=== PATIENT | female | born 2000 | race Caucasian/White ===

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

== ENCOUNTER → 2022-07-03 | Outpatient (CLI) | payer OTHER ==
--- NOTE | 2022-07-03 23:06 | US ---
EXAMINATION TYPE: Transabdominal DATE OF EXAM: 07/03/2022 4:50 PM COMPARISON: NONE CLINICAL HISTORY: Z36.89 ENCOUNTER FOR OTHER SPECIFIED SCR. Viability. . EXAM PERFORMED: Transabdominal (TA) EXAM MEASUREMENTS: GESTATIONAL AGE / DATING Physician Established: Not yet established Dates by LMP: (8 weeks/0 days) EDC: 02/12/2023 Dates by First Scan: This is first scan Dates by Current Scan for: (11 weeks/2 days) EDC: 01/20/2023 MATERNAL ANATOMY Uterus: 13.1 x 8.6 x 7.7 cm. Right Ovary: 3.7 x 2.1 x 3.1 cm. Left Ovary: 2.4 x 1.6 x 1.6 cm. Post CDS / Adnexa: Appear wnl Presence of free fluid: None seen Presence of corpus luteal cyst: Possible within right ovary, anechoic area seen within right ovary: 1 .7 x 1.8 x 2.1 cm. Presence of subchorionic bleed: Not seen GESTATION / SURVEY CRL: 4.49 cm (11 weeks/2 days) Yolk Sac (normal less than 6mm): Not seen. Heart Rate: 166 bpm Rhythm: Normal IUP: Viable IUP Nuchal Translucency 10-14wks (normal less than 3mm): 1 mm. Age Appropriate Anatomy Cord Insertion: Limited visibility Limbs: Visualized Calvarium: Visualized Date of LMP: 05/08/2022 Beta HcG (if available): Not available Single live intrauterine gestation is seen as gestational sac and pole are present. Yolk sac no t clearly identified. No free fluid in pelvic cul-de-sac. Both ovaries are seen. There is 2.1 cm thin-walled peripheral cystic lesion right ovary favoring debbie us luteal cyst. IMPRESSION: Single live intrauterine gestation is confirmed. Mean crown-rump length is 4.5 cm corresp onding to 11 week 2 day old fetus.
== END | disposition home or self-care (01) ==
LOC: RADUSWWP 16:24
PROVIDERS: ATTEND Obstetrics & Gynecology
DX: Z36.89 Encounter for other specified antenatal screening (principal); Z3A.11 11 weeks gestation of pregnancy
CPT/HCPCS: 76801; 76813

== ENCOUNTER 2022-11-08 14:56 | Outpatient (CLI) | payer OTHER ==
[2022-11-08] MEDS ORDERED: LACTATED RINGERS 1,000 ML IV ONE (16:00)
[2022-11-08 16:15] LABS: Appearance,Urine Clear (Clear); Bilirubin,Urine Negative (Negative); Blood,Urine Negative (Negative); Color,Urine Light Yellow; Glucose,Urine (UA) Negative (Negative); Ketones,Urine 1+ (Negative); Leukocyte Esterase,Urine Negative (Negative); Nitrite,Urine Negative (Negative); Protein,Urine Negative (Negative); Specific Gravity,Urine 1.007 (1.001-1.035); Urobilinogen,Urine <2.0 mg/dL (<2.0)
[2022-11-08 17:53] VITALS: BP 128/79; PULSE 89; RESP 18; TEMP 97.8
--- NOTE | 2022-11-23 10:22 | P.MSEPDOC ---
Presenting Problems - Arrival Data Date of Arrival on Unit: 11/08/22 Time of Arrival on Unit: 15:00 Mode of Transport: Ambulatory - Complaint OB-Reason for Admission/Chief Complaint: Possible Onset of Labor Comment: pt complaints of contractions that started at noon. Medical History - Information : 2 Para: 1 Term: 1 : 0 Abortions: Spontaneous or Elective: 0 Number of Living Children: 1 - Gestational Age Gestational Age by KEIRA (wks/days): 29 Weeks and 4 Days Review of Systems - Review of Systems Constitutional: No problems Breast: No problems ENT: No problems Cardiovascular: No problems Respiratory: No problems Gastrointestinal: No problems Genitourinary: No problems Musculoskeletal: No problems Neurological: No problems Skin: No problems Vital Signs - Temperature Temperature: 97.8 F Temperature Source: Oral - Pulse Pulse Oximetery Pulse Rate: 89 Pulse Assessment Method: Pulse Oximetry - Respirations Respiratory Rate: 18 Oxygen Delivery Method: Room Air O2 Sat by Pulse Oximetry: 97 - Blood Pressure Right Arm Blood Pressure: 128/79 Blood Pressure Mean: 95 Blood Pressure Source: Automatic Cuff Medical Screen Scoring - Cervical Exam Dilation (cm): 0 Effacement (%): 50 Station: -2 Membranes: Intact - Uterine Contractions Frequency From (mins): 5 Frequency To (mins): 6 Duration From (seconds): 40 Duration To (seconds): 90 Intensity: Mild Resting: Soft to palpation - Assessment - Baby A Baseline FHR: 130 Heart Rate - NICHD Category: Category I (Normal) NST: Reactive Physician Notification - Physician Notified Physician Notified Date: 11/08/22 Physician Notified Time: 15:51 Physician: Chitra Perdomo New Order Received: Yes Maternal Triage Index - Maternal Triage Index Presenting for scheduled procedure w/no complaint: No - Stat/Priority 1 Stat Priority 1: No - Urgent/Priority 2 Urgent Priority 2: Yes Provider Notified: Chitra Perdomo Provider Notified Time: 15:51 Criteria Met for Priority 2: pt complaining of contractions that started at noon. every 15 mins Disposition - Disposition OB Disposition: Discharge to home Discharge Date: 11/08/22 Discharge Time: 17:45 I agree with the RN Medical Screening Exam: Yes Case reviewed; plan agreed upon as documented in EMR&OBIX.: Yes Diagnosis: FALSE LABOR BEFORE 37 COMPLETED WEEKS OF GEST, THIRD TRI
== END 2022-11-08 17:45 | disposition home or self-care (01) ==
LOC: FBPOP 14:56
PROVIDERS: ATTEND Obstetrics & Gynecology
DX: O47.03 False labor before 37 completed weeks of gestation, third trimester (principal); Z3A.29 29 weeks gestation of pregnancy
CPT/HCPCS: 59025; 96360; 96361; 84112; 82731; 81003; G0463; 99213; 99214

== ENCOUNTER 2022-12-21 11:38 | Outpatient (CLI) | payer OTHER ==
[2022-12-21 13:08] VITALS: BP 117/73; PULSE 80; RESP 16; TEMP 97.8
--- NOTE | 2023-01-01 21:28 | P.MSEPDOC ---
Presenting Problems - Arrival Data Date of Arrival on Unit: 12/21/22 Time of Arrival on Unit: 11:38 Mode of Transport: Ambulatory - Complaint OB-Reason for Admission/Chief Complaint: Other Comment: Pt presents to triage with c/o injury at work. 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 and yanked pt forward. Pt denies anything hitting her abdomen. Pt reports incident. happened at 1000. Pt reports right lower abdominal muscle pain 6 out of 10. Medical History - Information : 2 Para: 1 Term: 1 : 0 Abortions: Spontaneous or Elective: 0 Number of Living Children: 0 - Gestational Age Gestational Age by KEIRA (wks/days): 35 Weeks and 5 Days Review of Systems - Review of Systems Constitutional: No problems Breast: No problems ENT: No problems Cardiovascular: No problems Respiratory: No problems Gastrointestinal: No problems Genitourinary: No problems Musculoskeletal: No problems Neurological: No problems Skin: No problems Vital Signs - Temperature Temperature: 97.8 F Temperature Source: Oral - Pulse Right Brachial Pulse Rate: 80 Pulse Assessment Method: Automatic Cuff - Respirations Respiratory Rate: 16 Oxygen Delivery Method: Room Air O2 Sat by Pulse Oximetry: 98 - Blood Pressure Right Arm Blood Pressure: 117/73 Blood Pressure Mean: 87 Blood Pressure Source: Automatic Cuff Medical Screen Scoring - Cervical Exam Dilation (cm): 1.5 Effacement (%): 50 Station: -3 Membranes: Intact - Assessment - Baby A Baseline FHR: 120 Heart Rate - NICHD Category: Category I (Normal) NST: Reactive Physician Notification - Physician Notified Physician Notified Date: 12/21/22 Physician Notified Time: 12:17 Physician: Nilda Curtis Order Received: Yes - Notification Comment Comment: Pt presents to triage with c/o injury at work. 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 and yanked pt forward. Pt denies anything hitting her abdomen. Pt reports incident. happened at 1000. Pt reports right lower abdomin al muscle pain 6 out of 10. 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 Disposition - Disposition OB Disposition: Discharge to home Discharge Date: 12/21/22 Discharge Time: 12:30 I agree with the RN Medical Screening Exam: Yes Case reviewed; plan agreed upon as documented in EMR&OBIX.: Yes Diagnosis: FALL ON SAME LEVEL, UNSPECIFIED, INITIAL ENCOUNTER
== END 2022-12-21 12:30 | disposition home or self-care (01) ==
LOC: FBPOP 11:38
PROVIDERS: ATTEND Obstetrics & Gynecology
DX: O9A.213 Injury, poisoning and certain other consequences of external causes complicating pregnancy, third trimester (principal); W18.30XA Fall on same level, unspecified, initial encounter; Z3A.35 35 weeks gestation of pregnancy; R10.31 Right lower quadrant pain
CPT/HCPCS: 59025; G0463; 99213

== ENCOUNTER 2023-01-16 07:45 | Inpatient (IN) | payer OTHER ==
[2023-01-16] MEDS ORDERED: CARBOPROST TROMETHAMINE 250 MCG/ML 1 ML AMP IM PRN (09:11)
[2023-01-16] MEDS ORDERED: OXYTOCIN 10 UNIT/ML 1 ML VIAL IM PRN (09:11)
[2023-01-16] MEDS ORDERED: LIDOCAINE 0.5% (PF) 5 MG/ML (50 ML SDV) SQ PRN (09:11)
[2023-01-16] MEDS ORDERED: METHYLERGONOVINE 0.2 MG/ML 1 ML AMP IM PRN (09:11)
[2023-01-16] MEDS ORDERED: miSOPROStoL 200 MCG TAB PO PRN (09:11)
[2023-01-16] MEDS ORDERED: TRANEXAMIC 1,000 MG/100ML-NACL 1,000 MG in EMPTY BAG 1 BAG IV PRN (09:11)
[2023-01-16] MEDS ORDERED: TERBUTALINE 1 MG/ML VIAL SQ PRN (09:11)
[2023-01-16] MEDS: LACTATED RINGERS 1,000 ML IV SCH ×2 (09:23→09:57)
[2023-01-16 09:24] LABS: Basophils % (A) 0 %; Eosinophils # (A) 0.1 k/uL (0-0.7); Eosinophils % (A) 1 %; HCT 37.6 % (34.0-46.0); HGB 12.8 gm/dL (11.4-16.0); Lymphocytes # (A) 2.1 k/uL (1.0-4.8); Lymphocytes % (A) 24 %; MCH 28.7 pg (25.0-35.0); MCHC 33.9 g/dL (31.0-37.0); MCV 84.7 fL (80.0-100.0); Mean Platelet Volume 11.2; Monocytes # (A) 0.4 k/uL (0-1.0); Monocytes % (A) 5 %; Neutrophils # (A) 6.1 k/uL (1.3-7.7); Neutrophils % (A) 69 %; Platelet Count 161 k/uL (150-450); RBC 4.44 m/uL (3.80-5.40); RDW 13.6 % (11.5-15.5); WBC 8.9 k/uL (3.8-10.6)
[2023-01-16] MEDS ORDERED: SODIUM CHLORIDE 0.9% 100 ML BAG ONE (09:37)
[2023-01-16] MEDS ORDERED: fentaNYL (PF) 50 MCG/ML 5 ML AMP ONE (09:37)
[2023-01-16] MEDS ORDERED: ROPIVACAINE 5 MG/ML 20 ML AMPULE ONE (09:37)
[2023-01-16] MEDS ORDERED: ROPIVACAINE 225 MG, fentaNYL (PF). 450 MCG in SODIUM CHLORIDE 0.9% 171 ML EPIDURAL ONE (09:59)
[2023-01-16] MEDS ORDERED: NALOXONE 0.4 MG/ML 1 ML VIAL IV PRN (11:00)
--- NOTE | 2023-01-16 11:02 | P.ANPRN ---
Procedure Note - Anesthesia - Epidural/Spinal Spinal Date of Procedure: 01/16/23 Procedure Start Time: 10:15 Procedure Stop Time: 10:20 Location of Patient: OB Indication: Acute Post-Operative Pain, Requested by Surgeon Position: Sitting Needle Guage: 25 Blood Aspirated: No Pain Paresthesia on Injection Noted: No Events: Uneventful and Well Tolerated (300 mcg of PF morphine along with 1.4 ml of 0.75% marcaine Heavy)
[2023-01-16] MEDS: OXYTOCIN 30 UNITS/500 ML NS 30 UNIT in SALINE 1 500ML.BAG IV SCH ×2 (12:19→16:26)
--- NOTE | 2023-01-16 12:36 | P.PROBDLV ---
Vaginal Delivery Note - . Vaginal Delivery Note: The patient progressed to complete dilation after artificial rupture membranes with thick meconium noted. She did receive epidural anesthesia. Once reaching complete, she began pushing. 's head came to a crown. With one further push, the 's head delivered across the perineum and a left occiput anterior lie. When she gave one further push, the anterior shoulder did not release. At this point epidural gloved hand between the shoulder and the vaginal wall and tried to rotate the anterior shoulder which did not relieve the shoulder dystocia. I then reached and posteriorly and was able to grab the posterior shoulder and with her pushing efforts deliver the posterior shoulder first followed by the anterior shoulder. Nuchal cord times one was reduced around the 's head. And then once the infant was freed with one remaining push, the infant was delivered and placed on mother's abdomen. Nose and mouth were then bulb suctioned. Awaiting hoop maker helper machine was standing by 2 evaluated baby. Cord was clamped and cut and was taken to warmer for evaluation. A viable male is noted with scores of 7 at 1 minute and 8 at 5 minutes and weight of 8 lbs. 9 oz. Placenta delivered shortly thereafter, intact, with a three-vessel cord. Uterus contracted well after oxytocin was given and uterine massage was carried out. Inspection of the perineum revealed no further perineal lacerations. Estimated blood loss is approximately 200 mL's. Both mother and infant are in stable condition. Patient and her partner were counseled regarding the shoulder dystocia and the risk of this recurring in the future. She is advised that she would need a delivery with her next child due to history of shoulder dystocia.
--- NOTE | 2023-01-16 12:38 | P.MSEPDOC ---
Presenting Problems - Arrival Data Date of Arrival on Unit: 01/16/23 Time of Arrival on Unit: 07:40 Mode of Transport: Wheelchair - Complaint OB-Reason for Admission/Chief Complaint: Possible Onset of Labor Comment: pt presents to triage for contractions that are getting stronger and more regular since 299 this am Medical History - Information : 2 Para: 1 Term: 1 : 0 Abortions: Spontaneous or Elective: 0 Number of Living Children: 1 - Gestational Age Gestational Age by KEIRA (wks/days): 39 Weeks and 3 Days Review of Systems - Review of Systems Constitutional: No problems Breast: No problems ENT: No problems Cardiovascular: No problems Respiratory: No problems Gastrointestinal: No problems Genitourinary: No problems Musculoskeletal: No problems Neurological: No problems Skin: No problems Vital Signs - Temperature Temperature: 97.3 F Temperature Source: Temporal Artery Scan - Pulse Right Brachial Pulse Rate: 62 Pulse Assessment Method: Automatic Cuff - Respirations Respiratory Rate: 17 Oxygen Delivery Method: Room Air O2 Sat by Pulse Oximetry: 99 - Blood Pressure Right Arm Blood Pressure: 135/90 Blood Pressure Mean: 105 Blood Pressure Source: Automatic Cuff Medical Screen Scoring - Cervical Exam Dilation (cm): 3 Effacement (%): 70 Station: -2 Membranes: Intact - Uterine Contractions Frequency From (mins): 2 Frequency To (mins): 3 Duration From (seconds): 50 Duration To (seconds): 70 Intensity: Moderate Resting: Soft to palpation - Assessment - Baby A Baseline FHR: 120 Heart Rate - NICHD Category: Category I (Normal) NST: Reactive Physician Notification - Physician Notified Physician Notified Date: 01/16/23 Physician Notified Time: 08:56 Physician: Nilda Curtis Order Received: Yes - Notification Comment Comment: admitting pt for labor, made some cervical change, AROM in triage with thick mec Maternal Triage Index - Maternal Triage Index Presenting for scheduled procedure w/no complaint: No - Stat/Priority 1 Stat Priority 1: No - Urgent/Priority 2 Urgent Priority 2: No - Prompt/Priority 3 Prompt Priority 3: Yes Criteria Met for Priority 3: pt presents to triage for contractions that are getting stronger and more regular since 0 this am Disposition - Disposition OB Disposition: Admit I agree with the RN Medical Screening Exam: Yes Case reviewed; plan agreed upon as documented in EMR&OBIX.: Yes Diagnosis: ENCOUNTER FOR FULL-TERM UNCOMPLICATED DELIVERY
[2023-01-16] MEDS ORDERED: diphenhydrAMINE 50 MG/ML 1 ML VIAL IVP PRN ×2 (13:13)
[2023-01-16] MEDS ORDERED: diphenhydrAMINE 25 MG CAP PO PRN (13:13)
[2023-01-16] MEDS ORDERED: ZOLPIDEM 5 MG TAB PO PRN (13:13)
[2023-01-16] MEDS ORDERED: BENZOCAINE/MENTHOL SPRAY 1 GM/SPRAY AEROSOL TOPICAL PRN (13:13)
[2023-01-16] MEDS ORDERED: LANOLIN CREAM 5 GM TUBE TOPICAL PRN (13:13)
[2023-01-16] MEDS ORDERED: diphenhydrAMINE 50 MG CAP PO PRN (13:13)
[2023-01-16] MEDS ORDERED: SIMETHICONE 80 MG CHEWABLE PO PRN (13:13)
[2023-01-16] MEDS ORDERED: HYDROCORTISONE 2.5% RECTAL CREAM 30 GM TUBE RECTAL PRN (13:13)
[2023-01-16] MEDS: IBUPROFEN 600 MG TAB PO PRN ×2 (13:25→19:27)
[2023-01-16] MEDS ORDERED: ONDANSETRON 4 MG/2 ML VIAL IVP STA (15:31)
[2023-01-16] MEDS: ACETAMINOPHEN TAB 325 MG TAB PO PRN ×2 (16:43→22:06)
[2023-01-16] MEDS: SENNOSIDES-DOCUSATE SODIUM 1 EACH TAB PO SCH (19:32)
[2023-01-17] MEDS: IBUPROFEN 600 MG TAB PO PRN ×2 (04:09→09:53)
[2023-01-17] MEDS: ACETAMINOPHEN TAB 325 MG TAB PO PRN (06:13)
--- NOTE | 2023-01-17 06:39 | P.DS ---
Providers Date of admission: 01/16/23 08:58 Expected date of discharge: 01/17/23 Attending physician: Nilda Curtis Primary care physician: Stated None Hospital Course: This is a 23-year-old female, 2 para 1 at 39-3/7 weeks who presents with active labor. She did receive epidural anesthesia. Once reaching complete, she began pushing. She delivered a viable male on 01/16/2023 with scores of 7 at 1 minute and 8 at 5 minutes and weight of 8 lbs. 9 oz. The delivery was complicated by a shoulder dystocia relieved by delivery of the posterior shoulder. Her course initially was complicated by increased bleeding and she was given 1 dose of Methergine. Bleeding did slowly decrease and is currently minimal at this time. Her pain is been fairly well-controlled. Vital signs are stable. Abdomen is soft with fundus firm and nontender. Extremities show negative Homans. Impression is status post vaginal delivery day #1. Plan is to discharge home today. Routine instructions are given. She will be given a prescription for ibuprofen and Tylenol. She has a breast pump at home. She is advised to call the office if she has any further questions or concerns prior to her appointment time. She was also counseled regarding the shoulder dystocia and the need for delivery with her next . Procedures: Spontaneous vaginal delivery of a viable male on 01/16/2023 Shoulder dystocia Patient Condition at Discharge: Stable Plan - Discharge Summary New Discharge Prescriptions: New Ibuprofen [Motrin] 600 mg PO Q6HR PRN #60 tab PRN Reason: Mild Pain (Scale 1 To 3) Continue Pnv No.95/Ferrous Fum/Folic AC [ Multivitamin Tablet] 1 tab PO DAILY Discharge Medication List Pnv No.95/Ferrous Fum/Folic AC [ Multivitamin Tablet] 1 tab PO DAILY 10/23/20 [History] Ibuprofen [Motrin] 600 mg PO Q6HR PRN #60 tab 01/17/23 [Rx] Follow up Appointment(s)/Referral(s): Nilda Curtis DO [Doctor of Osteopathic Medicine] - 02/25/23 11:30 am Activity/Diet/Wound Care/Special Instructions: Instructions 1. Do not begin any exercise program for 3 weeks. 2. Do not resume sexual relations for 3 weeks or longer if uncomfortable. 3. You may take tub baths or showers at any time. 4. You may use tampons if desired after 3 weeks. 5. Keep the area of episiotomy (stitches) clean and dry. 6. If you are not nursing, wear a good fitting, supportive bra during the day and limit fluid intake for at least 1 week to prevent breast engorgement. 7. Call the office, [phone], within the next week to make appointment for your 6 week checkup if it has not already been made. 8. Report any of the following occurrences to the doctor promptly: a. Heavy, excessive bleeding b. Chills, fever c. Burning or frequency of urination d. Pain or redness and breasts if nursing e. Increasing pain or swelling in episiotomy (stitches). In addition to the above instructions, the following additional should be followed: 1. No heavy lifting or straining (exercising) until after 6 week checkup. 2. Keep abdominal incision clean and dry: You may wear a dressing if more comfortable. 3. Make office appointment for 10 days after going home or as instructed by her doctor. Discharge Disposition: HOME SELF-CARE
[2023-01-17 07:46] LABS: Basophils % (A) 0 %; Eosinophils % (A) 0 %; HCT 37.8 % (34.0-46.0); HGB 12.3 gm/dL (11.4-16.0); Lymphocytes # (A) 1.8 k/uL (1.0-4.8); Lymphocytes % (A) 15 %; MCH 28.3 pg (25.0-35.0); MCHC 32.6 g/dL (31.0-37.0); Mean Platelet Volume 10.8; Monocytes # (A) 0.5 k/uL (0-1.0); Monocytes % (A) 4 %; Neutrophils # (A) 9.1 k/uL (1.3-7.7); Neutrophils % (A) 79 %; Platelet Count 169 k/uL (150-450); RBC 4.35 m/uL (3.80-5.40); RDW 13.4 % (11.5-15.5); WBC 11.6 k/uL (3.8-10.6)
[2023-01-17 08:41] VITALS: RESP 16
[2023-01-17] MEDS ORDERED: PRENATAL VIT-IRON-FOLIC ACID 1 EACH TABLET PO SCH (09:00)
[2023-01-17] MEDS: SENNOSIDES-DOCUSATE SODIUM 1 EACH TAB PO SCH (09:52)
[2023-01-17 13:09] VITALS: BP 121/81; PULSE 68; TEMP 97.8
== END 2023-01-17 13:30 | disposition home or self-care (01) | DRG 560 ==
LOC: FBPOP 07:45 → 4FBP 08:58
PROVIDERS: ADMIT Obstetrics & Gynecology; ATTEND Obstetrics & Gynecology
PROC: 10E0XZZ Delivery of Products of Conception, External Approach (ICD-10-PCS; principal; 2023-01-16)
DX: O66.0 Obstructed labor due to shoulder dystocia (principal); O69.81X0 Labor and delivery complicated by cord around neck, without compression, not applicable or unspecified; O77.0 Labor and delivery complicated by meconium in amniotic fluid; Z37.0 Single live birth; Z3A.39 39 weeks gestation of pregnancy
CPT/HCPCS: 59025; 85025; 86850; 86900; 86901; 99213